=== PATIENT | male | born 1975 | race African-American/Black ===

== ENCOUNTER 2018-01-14 19:38 | Emergency (ER) | payer BC, OTHER ==
[~2018-01-14] VITALS: Ht 175.3 cm; Wt 63.0 kg
[~2018-01-14 19:38] MED LIST: AMOX875 PO; IBUP800T23 PO; LORTA5 PO
[2018-01-14 19:42] VITALS: BP 128/73; PULSE 68; RESP 18; TEMP 98.6; O2SAT 100
[2018-01-14] MEDS ORDERED: ROBA750T PO (20:30)
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
== END 2018-01-14 20:41 | disposition home or self-care (01) ==
LOC: PHEFT 19:38
DX: S29.019A Strain of muscle and tendon of unspecified wall of thorax, initial encounter (principal); M54.5 Low back pain; V89.2XXA Person injured in unspecified motor-vehicle accident, traffic, initial encounter
CPT/HCPCS: 99283